=== PATIENT | male | born 2000 | race African-American/Black ===

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

== ENCOUNTER 2019-02-11 17:46 | Emergency (ER) | payer SELFPAY ==
[~2019-02-11] VITALS: Ht 177.8 cm; Wt 77.1 kg
[~2019-02-11 17:46] MED LIST changes: +CLINDAMYCIN HC300 MG ORAL
[2019-02-11 18:04] VITALS: BP 117/72
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
[2019-02-11] MEDS ORDERED: Tetanus/Diptheria/Pertussis IM ONE (18:30)
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
[2019-02-11] MEDS ORDERED: NAPROXEN500 M2 ORAL (19:18)
[2019-02-11] MEDS ORDERED: CEPHALEXIN500 MG ORAL (19:18)
[2019-02-11 19:42] VITALS: BP 117/72
--- NOTE | 2019-02-11 19:43 | NUR ---
ED Nurse Note: Pt cleared by health care Provider for discharge. DC instructions/prescription was given and explained to pt and verbalized understanding of teachings. All medical deviecs such as ID band removed. Pt is AAO x4, ambulatory and left with all personal belongings.
--- NOTE | 2019-02-12 10:19 | Diagnostic Imaging Report ---
Indication: Trauma and facial pain Technique: Continuous helical transaxial imaging of the maxillofacial structures obtained without intravenous contrast administration. Coronal 2-D reformats were also obtained. Study obtained in a Siemens sensation [address] Automatic Exposure Control was utilized. Total Dose length Product (DLP): 1926.[address] Dose Index Volume (CTDIvol): 70.38,28.19 mGy Comparison: None Findings: There is a mild nondisplaced fracture of the frontal process of the left maxilla. No other fractures are identified. The orbits appear normal bilaterally. There is soft tissue swelling over the nose. Mastoids are clear bilaterally. IMPRESSION: Mild nondisplaced fracture frontal process of the left maxilla. Acuity of this injury is indeterminate. The CT scanner at [facility] is accredited by the [employer] and the scans are performed using dose optimization techniques as appropriate to a performed exam including Automatic Exposure control.
--- NOTE | 2019-02-12 10:45 | Diagnostic Imaging Report ---
Indication: Headache. Head trauma Technique: Contiguous 5 mm thick transaxial imaging of the head obtained in a Siemens Sensation [address] scanner. Soft tissue and bone windows generated. Automatic Exposure Control was utilized. Total Dose length Product (DLP): 1926.[address] Dose Index Volume (CTDIvol): 70.38,28.19 mGy Comparison: none Findings: The size and configuration of the cortical sulci, basal cisterns, and ventricles are within normal limits for age. There is no mass effect, midline shift, or edema identified. There is no evidence of acute hemorrhage or abnormal intra-axial or extra-axial fluid collections. The bones and soft tissues are unremarkable. Impression: No mass effect, edema or acute bleed. [facility] has communicated the preliminary results to the Emergency Department. Their findings are largely concordant with this report. The CT scanner at [facility] is accredited by the [employer] and the scans are performed using dose optimization techniques as appropriate to a performed exam including Automatic Exposure control.
--- NOTE | 2019-02-12 12:22 | Diagnostic Imaging Report ---
Indication: Right hand pain Findings: 3 views of the right hand were obtained. Normal bony mineralization and alignment are demonstrated. No acute fractures, erosions, or periosteal reaction are seen. Soft tissues are unremarkable. Impression: No acute findings.
== END 2019-02-11 19:40 | disposition home or self-care (01) ==
LOC: EMR 18:29
DX: S00.83XA Contusion of other part of head, initial encounter (principal); S00.93XA Contusion of unspecified part of head, initial encounter; S60.221A Contusion of right hand, initial encounter; S00.532A Contusion of oral cavity, initial encounter; Y04.2XXA Assault by strike against or bumped into by another person, initial encounter; Y92.9 Unspecified place or not applicable; F12.90 Cannabis use, unspecified, uncomplicated; Z23 Encounter for immunization
CPT/HCPCS: 70450; 70486; 90471; 90715; 99284

== ENCOUNTER 2019-05-28 10:23 | Emergency (ER) | payer MEDICAID, OTHER ==
[~2019-05-28] VITALS: Ht 180.3 cm; Wt 77.1 kg
[~2019-05-28 10:23] MED LIST changes: +NAPROXEN500 M2 ORAL
--- NOTE | 2019-05-28 10:29 | NUR ---
ED Nurse Note: pt not found in waiting area.
--- NOTE | 2019-05-28 10:36 | NUR ---
ED Nurse Note: pt not found in waiting area.
[2019-05-28] MEDS ORDERED: UNOBMED (11:00)
--- NOTE | 2019-05-28 11:00 | NUR ---
ED Nurse Note:pt. came for unknown reason, A/Ox4 ambulatory with steady gait, was given water, no signs of distress noted with SVV, he was given short per his requiest, he refused to answer further questions and refused to provide any blood draw or urine sample
--- NOTE | 2019-05-28 11:00 | NUR ---
ED Nurse Note: pt follow the command but not answering any questions. unable to assess.
[2019-05-28 11:18] VITALS: BP 131/86
--- NOTE | 2019-05-28 11:20 | NUR ---
ELOPEMENT: pt. walked out of ER with steady gait before being seen by ER MD and without notifying staff
[2019-05-28 11:24] VITALS: BP 131/86
== END 2019-05-28 11:45 | disposition left against medical advice (07) ==
LOC: EMR 11:15
DX: Z53.21 Procedure and treatment not carried out due to patient leaving prior to being seen by health care provider (principal)